=== PATIENT | female | born 1970 | race Caucasian/White ===

== ENCOUNTER → 2017-06-27 | Outpatient (CLI) | payer OTHER ==
[~2017-06-27] MED LIST: BIRTH CONTROL; CEPHALEXIN500 M1 PO; LORTAB 5/500 501 TAB PO; SEPTRA DS 8001 TAB PO; ZOCOR 20MG20 MG PO
== END ==
LOC: MC.RAD 06-23 14:40
DX: Z12.31 Encounter for screening mammogram for malignant neoplasm of breast (principal)

== ENCOUNTER → 2017-08-22 | Outpatient (CLI) | payer OTHER ==
[~2017-08-22] VITALS: Ht 175.3 cm; Wt 135.2 kg
[~2017-08-22] MED LIST changes: -BIRTH CONTROL; +LOPRESSOR HCT 21 TA1 PO; +WELLBUTRIN XL300 M1 PO; +norethindrone
[2017-08-22 15:52] VITALS: BP 124/80; PULSE 64
== END ==
LOC: LIGHT 09:41
DX: E78.5 Hyperlipidemia, unspecified (principal); E66.01 Morbid (severe) obesity due to excess calories; Z68.41 Body mass index [BMI] 40.0-44.9, adult; Z71.3 Dietary counseling and surveillance; F32.89 Other specified depressive episodes; R73.01 Impaired fasting glucose

== ENCOUNTER → 2017-09-05 | Outpatient (CLI) | payer OTHER | LOC: LIGHT 13:55 | DX: Z01.89 Encounter for other specified special examinations (principal) ==

== ENCOUNTER → 2017-09-26 | Outpatient (CLI) | payer OTHER ==
[~2017-09-26] VITALS: Ht 175.3 cm; Wt 133.6 kg
[~2017-09-26] MED LIST changes: +HEATHER0.35 MG PO; -norethindrone
[2017-09-26 17:05] VITALS: BP 114/80; PULSE 64
== END ==
LOC: LIGHT 15:34
DX: E78.5 Hyperlipidemia, unspecified (principal); E66.01 Morbid (severe) obesity due to excess calories; Z68.41 Body mass index [BMI] 40.0-44.9, adult; Z71.3 Dietary counseling and surveillance; F32.89 Other specified depressive episodes; R73.01 Impaired fasting glucose
CPT/HCPCS: G0463

== ENCOUNTER → 2017-10-03 | Outpatient (CLI) | payer OTHER | LOC: LIGHT 10:03 | DX: Z01.818 Encounter for other preprocedural examination (principal) ==

== ENCOUNTER → 2017-10-31 | Outpatient (CLI) | payer OTHER ==
[~2017-10-31] VITALS: Ht 175.3 cm; Wt 131.8 kg
[~2017-10-31] MED LIST changes: +GLUCOPHAGE500 MG/TAB PO
[2017-10-31 16:25] VITALS: BP 110/70; PULSE 60
== END ==
LOC: LIGHT 16:17
DX: E78.5 Hyperlipidemia, unspecified (principal); E66.01 Morbid (severe) obesity due to excess calories; Z68.41 Body mass index [BMI] 40.0-44.9, adult; Z71.3 Dietary counseling and surveillance; F32.89 Other specified depressive episodes; R73.01 Impaired fasting glucose
CPT/HCPCS: G0463

== ENCOUNTER → 2017-12-07 | Outpatient (CLI) | payer OTHER ==
[~2017-12-07] VITALS: Ht 175.3 cm; Wt 131.1 kg
[2017-12-07 16:49] VITALS: BP 124/72; PULSE 72
== END ==
LOC: LIGHT 16:15
DX: E78.5 Hyperlipidemia, unspecified (principal); E66.01 Morbid (severe) obesity due to excess calories; Z68.41 Body mass index [BMI] 40.0-44.9, adult; Z71.3 Dietary counseling and surveillance; R73.01 Impaired fasting glucose; F32.9 Major depressive disorder, single episode, unspecified
CPT/HCPCS: G0463

== ENCOUNTER → 2017-12-19 | Outpatient (CLI) | payer OTHER | LOC: BHSO 14:47 | DX: F33.0 Major depressive disorder, recurrent, mild (principal) ==

== ENCOUNTER → 2018-01-10 | Outpatient (CLI) | payer OTHER | LOC: BHSO 15:01 | DX: F33.1 Major depressive disorder, recurrent, moderate (principal) ==

== ENCOUNTER → 2018-01-18 | Outpatient (CLI) | payer OTHER ==
[~2018-01-18] VITALS: Ht 175.3 cm; Wt 126.8 kg
[2018-01-18 16:28] VITALS: BP 120/60; PULSE 52
== END ==
LOC: LIGHT 08:43
DX: E78.5 Hyperlipidemia, unspecified (principal); F32.9 Major depressive disorder, single episode, unspecified; R73.01 Impaired fasting glucose; E66.01 Morbid (severe) obesity due to excess calories; Z68.41 Body mass index [BMI] 40.0-44.9, adult; Z71.3 Dietary counseling and surveillance
CPT/HCPCS: G0463

== ENCOUNTER → 2018-01-24 | Outpatient (CLI) | payer OTHER | LOC: BHSO 14:51 | DX: F33.0 Major depressive disorder, recurrent, mild (principal) ==

== ENCOUNTER → 2018-02-07 | Outpatient (CLI) | payer OTHER | LOC: BHSO 14:55 | DX: F33.0 Major depressive disorder, recurrent, mild (principal) ==

== ENCOUNTER → 2018-03-01 | Outpatient (CLI) | payer OTHER ==
[~2018-03-01] VITALS: Ht 175.3 cm; Wt 125.0 kg
[2018-03-01 16:08] VITALS: BP 108/64; PULSE 60
== END ==
LOC: LIGHT 11:40
DX: E03.9 Hypothyroidism, unspecified (principal); F32.9 Major depressive disorder, single episode, unspecified; R73.01 Impaired fasting glucose; E66.01 Morbid (severe) obesity due to excess calories; Z68.41 Body mass index [BMI] 40.0-44.9, adult; Z71.3 Dietary counseling and surveillance
CPT/HCPCS: G0463

== ENCOUNTER → 2018-03-14 | Outpatient (CLI) | payer OTHER | LOC: BHSO 15:00 | DX: F33.0 Major depressive disorder, recurrent, mild (principal) ==

== ENCOUNTER → 2018-04-26 | Outpatient (CLI) | payer OTHER ==
[~2018-04-26] VITALS: Ht 175.3 cm; Wt 120.9 kg
[~2018-04-26] MED LIST changes: +HCTZ 25MG TAB25 MG PO; +ZOLOFT 50MG50 MG PO
[2018-04-26 16:33] VITALS: BP 120/68; PULSE 60
== END ==
LOC: LIGHT 11:33
DX: E78.5 Hyperlipidemia, unspecified (principal); F32.9 Major depressive disorder, single episode, unspecified; R73.01 Impaired fasting glucose; E66.9 Obesity, unspecified; Z68.39 Body mass index [BMI] 39.0-39.9, adult; Z71.3 Dietary counseling and surveillance
CPT/HCPCS: G0463

== ENCOUNTER → 2018-06-28 | Outpatient (CLI) | payer OTHER ==
[~2018-06-28] VITALS: Ht 175.3 cm; Wt 118.6 kg
[2018-06-28 16:20] VITALS: BP 116/60; PULSE 64
== END ==
LOC: LIGHT 16:14
DX: E78.5 Hyperlipidemia, unspecified (principal); F32.9 Major depressive disorder, single episode, unspecified; R73.01 Impaired fasting glucose; E66.01 Morbid (severe) obesity due to excess calories; Z68.38 Body mass index [BMI] 38.0-38.9, adult; Z71.3 Dietary counseling and surveillance
CPT/HCPCS: G0463

== ENCOUNTER → 2020-01-17 | Outpatient (CLI) | payer OTHER ==
[~2020-01-17] MED LIST changes: +GLUCOPHAGE XR500 M1 PO; -GLUCOPHAGE500 MG/TAB PO
== END ==
LOC: MC.RAD 07:30
DX: Z12.31 Encounter for screening mammogram for malignant neoplasm of breast (principal)

== ENCOUNTER 2022-07-15 07:48 | Day surgery (SDC) | payer OTHER ==
[~2022-07-15] VITALS: Ht 175.3 cm; Wt 102.7 kg
[2022-07-15 08:16] VITALS: BP 145/91; PULSE 79; TEMP 97.3
[2022-07-15 09:35] VITALS: BP 137/85; PULSE 68; TEMP 97.3
--- NOTE | 2022-07-15 09:35 | NUR ---
0935 PATIENT RETURNS TO ROOM 7 VIA CART. PATIENT IS ALERT AND ORIENTED. PATIENT DAUGHTER IS IN ROOM. PATIENT AMBULATES TO RECLINER WITH THE ASSISTANCE OF 2 NURSES. RESPIRATIONS EVEN AND UNLABORED. VITAL SIGNS OBTAINED. PATIENT REQUESTED A GRAPE JUICE, NO DIFFICULTIES SWALLOWING. 0950 DISCHARGE INSTRUCTIONS REVIEWED WITH PATIENT AND PATIENT DAUGHTER, BOTH VERBALIZED UNDERSTANDING. 0955 DISCONTINUED IV FROM RIGHT WRIST WITH NO COMPLICATIONS. 1000 DOCTOR IN TO SPEAK WITH PATIENT. 1005 PATIENT DISCHARGES FROM UNIT VIA WHEELCHAIR IN STABLE CONDITION TO PRIVATE CAR.
[2022-07-15 09:50] VITALS: BP 147/84; PULSE 77
[2022-07-15 10:00] VITALS: BP 143/83; PULSE 66
== END 2022-07-15 10:05 | disposition home or self-care (01) ==
LOC: SDCO 07:48
DX: Z12.11 Encounter for screening for malignant neoplasm of colon (principal); D12.0 Benign neoplasm of cecum
CPT/HCPCS: J2704; J7120

== ENCOUNTER → 2024-01-10 | Outpatient (CLI) | payer BC | LOC: MC.RAD 07:25 | DX: Z12.31 Encounter for screening mammogram for malignant neoplasm of breast (principal) ==